=== PATIENT | female | born 1990 | race Caucasian/White ===

== ENCOUNTER 2021-01-20 08:18 | Emergency (ER) | payer MEDICAID ==
[~2021-01-20] VITALS: Ht 162.6 cm; Wt 63.0 kg
[2021-01-20 08:25] VITALS: BP 115/55
== END 2021-01-20 09:15 | disposition home or self-care (01) ==
LOC: ER 08:34
DX: S01.81XA Laceration without foreign body of other part of head, initial encounter (principal); W22.8XXA Striking against or struck by other objects, initial encounter; Y93.89 Activity, other specified; Y92.89 Other specified places as the place of occurrence of the external cause; Y99.0 Civilian activity done for income or pay
CPT/HCPCS: 12011; 99282

== ENCOUNTER 2021-07-08 10:17 | Emergency (ER) | payer MEDICAID ==
[~2021-07-08] VITALS: Ht 160 cm; Wt 61.0 kg
[2021-07-08 10:25] VITALS: BP 129/64
[2021-07-08] MEDS ORDERED: TETANUS, DIPHTHERIA, PERTUSSIS VAC/PF 0.5ML (>7YR OLD) IM ONE (10:45)
[2021-07-08] MEDS ORDERED: ACET-2708 MT (10:49)
[2021-07-08] MEDS ORDERED: LIDOCAINE HCL/EPINEPHRINE 1%-EPI 1:100,000 20 ML VIAL INFIL ONE (11:00)
[2021-07-08] MEDS ORDERED: BACITRACIN ZINC OINT UDPKT TOP ONE (11:00)
== END 2021-07-08 11:40 | disposition home or self-care (01) ==
LOC: ER 10:17
DX: S51.812A Laceration without foreign body of left forearm, initial encounter (principal); W25.XXXA Contact with sharp glass, initial encounter; Y93.G1 Activity, food preparation and clean up; Y92.030 Kitchen in apartment as the place of occurrence of the external cause; Z23 Encounter for immunization
CPT/HCPCS: 12002; 73090; 81025; 90471; 90715; 99283; J3490; Z7610

== ENCOUNTER 2021-11-03 03:22 | Emergency (ER) | payer MEDICAID ==
[~2021-11-03] VITALS: Ht 160 cm; Wt 61.0 kg
[~2021-11-03 03:22] MED LIST: ACET-2708 MT
[2021-11-03 03:26] VITALS: BP 129/86
[2021-11-03] MEDS ORDERED: SODIUM CHLORIDE 0.9% 1,000 ML IV ONE (04:30)
== END 2021-11-03 05:00 | disposition left against medical advice (07) ==
LOC: ER 03:22
DX: R11.2 Nausea with vomiting, unspecified (principal); R19.7 Diarrhea, unspecified
CPT/HCPCS: 99281; J7030